=== PATIENT | male | born 1970 | race African-American/Black ===

== ENCOUNTER 2019-06-06 09:28 | Emergency (ER) | payer SELFPAY ==
[~2019-06-06] VITALS: Ht 190.5 cm; Wt 90.7 kg
[2019-06-06 09:50] VITALS: BP 139/82
[2019-06-06] MEDS ORDERED: NAPR-695 PO (10:07)
[2019-06-06] MEDS ORDERED: ORPH-16 PO (10:07)
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
[2019-06-06] MEDS ORDERED: KETOROLAC 30 MG/ML VIAL. IM ONE (10:15)
== END 2019-06-06 10:27 | disposition home or self-care (01) ==
LOC: ER 09:28
DX: S16.1XXA Strain of muscle, fascia and tendon at neck level, initial encounter (principal); S33.5XXA Sprain of ligaments of lumbar spine, initial encounter; M54.6 Pain in thoracic spine; F17.200 Nicotine dependence, unspecified, uncomplicated; V49.49XA Driver injured in collision with other motor vehicles in traffic accident, initial encounter; Y93.19 Activity, other involving water and watercraft; Y92.488 Other paved roadways as the place of occurrence of the external cause; Y99.8 Other external cause status
CPT/HCPCS: 96372; 99283; J1885

== ENCOUNTER 2019-07-02 19:19 | Emergency (ER) | payer MEDICAID ==
[~2019-07-02] VITALS: Ht 190.5 cm; Wt 90.9 kg
[~2019-07-02 19:19] MED LIST: NAPR-695 PO; ORPH-16 PO
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
[2019-07-02] MEDS ORDERED: ORPHENADRINE CITRATE 60 MG/2 ML VIAL. IM ONE (20:45)
[2019-07-02] MEDS ORDERED: KETOROLAC 60 MG/2 ML VIAL. IM ONE (20:45)
[2019-07-02] MEDS ORDERED: methylPREDNISolone ACETATE 40 MG/ML VIAL. IM ONE (20:45)
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
[2019-07-02] MEDS ORDERED: CYCL-331 PO (22:18)
[2019-07-02] MEDS ORDERED: HYDR-1179 PO (22:18)
[2019-07-02 22:28] VITALS: BP 133/82
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
== END 2019-07-02 22:30 | disposition home or self-care (01) ==
LOC: ER 19:19
DX: M25.512 Pain in left shoulder (principal); G62.9 Polyneuropathy, unspecified; F17.210 Nicotine dependence, cigarettes, uncomplicated
CPT/HCPCS: 71046; 72125; 73030; 99284